=== PATIENT | male | born 1975 | race Caucasian/White ===

== ENCOUNTER 2016-11-15 11:30 | Emergency (ER) | payer SELFPAY ==
[2016-11-15 11:35] VITALS: BP 163/87; PULSE 84; TEMP 98.1; BMI 26.6
[2016-11-15] MEDS ORDERED: diazePAM 5 MG TABLET PO ONE (12:26)
[2016-11-15] MEDS ORDERED: KETOROLAC TROMETHAMINE 60 MG/2 ML VIAL IM ONE (12:26)
--- NOTE | 2016-11-15 12:26 | PDOC ---
History of Present Illness - General Chief Complaint: Pain Stated Complaint: BACK PAIN Time Seen by Provider: 11/15/16 12:03 History Source: Patient Exam Limitations: No Limitations - History of Present Illness Initial Comments: 11/15/16 12:14 My chief complaint: Lower back pain History of present illness: Pt. is a 41-year-old male with no significant medical history here today complaining of left lower back pain started on t hat has gotten progressive worse becoming severe yesterday with difficulty applying any pressure to left leg and walking. Patient reports that the pain radiates from his left lower back down his left leg with tingling of his left large toe since yesterday. 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 Patient does not remember any particular time of day at work when he felt back pain. Patient reports that pain is worse when standing and putting any weight on his left leg and is a 10 out of 10 and feels better lying down. Patient denies any incontinency or saddle anesthesia. Pt. does not have foot drop. Allergies: Medications: Past medical history: Surgical hx: Social history: 11/15/16 12:47 11/15/16 14:08 11/15/16 14:12 11/15/16 14:14 11/15/16 14:17 Occurred: reports: other (for 3-4 days ) Severity: reports: severe Pain Location: reports: back (left lower back pain radiates down posterior left leg to foot ) Method of Injury: Yes: unknown Modifying Factors: improves with: None Loss of Consciousness: no loss of consciousness Associated Symptoms (Fall): muscle spasms, trouble walking, other (left lower back pain with radiation down left posterior leg to left foot with tingling of left large toe ) Past History - Past Medical History Allergies/Adverse Reactions: Allergies Allergy/AdvReac Type Severity Reaction Status Date / Time No Known Allergies Allergy Verified 11/15/16 11:35 Home Medications: Ambulatory Orders Oxycodone HCl/Acetaminophen [Percocet 5-325 mg Tablet] 1 tab PO Q6H PRN #12 tablet MDD 4 11/15/16 Other medical history: NONE - Psycho/Social/Smoking Cessation Hx Suicidal Ideation: No Smoking History: Never smoked Hx Alcohol Use: Yes (SOCIAL) Drug/Substance Use Hx: No Substance Use Type: None Review of Systems - Review of Systems Able to Perform ROS?: Yes Constitutional: No: Symptoms Reported HEENTM: No: Symptoms Reported Respiratory: No: Symptoms reported Cardiac (ROS): No: Symptoms Reported ABD/GI: No: Symptoms Reported : No: Symptoms Reported Musculoskeletal: Yes: Back Pain (left lower back pain with radiation down left posterior leg to foot) Integumentary: No: Symptoms Reported Neurological: Yes: Tingling (left large toe) *Physical Exam - Vital Signs Last Vital Signs Temp Pulse Resp BP Pulse Ox 98.1 F 84 20 163/87 99 11/15/16 11:31 11/15/16 11:31 11/15/16 11:31 11/15/16 11:31 11/15/16 11:31 - Physical Exam General Appearance: Yes: Appropriately Dressed Respiratory/Chest: positive: Lungs Clear, Normal Breath Sounds Cardiovascular: positive: Regular Rhythm, Regular Rate, S1, S2 Extremity: positive: Normal Capillary Refill, Normal Inspection, Tender (left lower back along lumbar paraspinal muscle ). negative: Normal Range of Motion ( at waist ) Integumentary: positive: Normal Color Neurologic: positive: Alert, Normal Response, Respond to painful stimul (b/l legs), Responsive, Other (+ SLR left at 30 degrees, negative rt. SLR). negative : Sensory Deficit (legs b/l ) Deep Tendon Reflexes: Ankle (L): 3+, Ankle (R): 3+, Knee (L): 3+, Knee (R): 3+ Medical Decision Making - Medical Decision Making 11/15/16 12:51 Pt. is a 41-year-old male with no significant medical history here today complaining of left lower back pain started on 11/12/16 t hat has gotten progressive worse becoming severe yesterday with difficulty applying any pressure to left leg and walking. Patient reports that the pain radiates from his left lower back down his left leg with tingling of his left large toe since yesterday. 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 Patient does not remember any particular time of day at work when he felt back pain. Patient reports that pain is worse when standing and putting any weight on his left leg and is a 10 out of 10 and feels better lying down. Patient denies any incontinency or saddle anesthesia. Pt. does not have foot drop. Left lower back pain with radiculopathy with paresthesia left large toe PLAN: toradol 60 IM now valium 5 mg po now 11/15/16 14:12 11/15/16 14:12 pt. has not improved percocet 5mg/325mg po now than every 6 hrs prn severe pain # [address] of lumbar sacral spine reveals a moderate size central and left paramedial L4-L5 disc herniation. There is also appears to be a disc extruded component within the left L5 lateral recess. A very small X extruded central else to L3 disc herniation is seen with this material posterior to the L2 inferior endplate. 11/15/16 14:17 11/15/16 15:57 feeling better will discharge to home pt. to follow up with orthopedic clinic at [facility] [phone] due to not having insurance or here with Dr. Cheng 11/15/16 19:37 *DC/Admit/Observation/Transfer Diagnosis at time of Disposition: Lumbar disc herniation with radiculopathy - Discharge Dispostion Disposition: HOME Condition at time of disposition: Stable - Prescriptions Prescriptions: Oxycodone HCl/Acetaminophen [Percocet 5-325 mg Tablet] 1 tab PO Q6H PRN #12 tablet MDD 4 PRN Reason: Severe Pain - Patient Instructions Additional Instructions: Follow Up with orthopedic clinic at [facility] at [phone] ask for the orthopedic clinic on 11/17/2016 or call here for clinic with Dr. Cheng orthopedist [phone] for further evaluation Avoid any strenuous activities including shoveling or lifting or any sports Return to emergency room if symptoms worsen especially if any numbness of groin area or leg or any weakness of leg or left foot Patient voiced understanding of discharge instructions and all questions were answered Siga con la clnica ortopdica en [facility] al [phone] pida la clnica ortopdica el 17/11/2016 O llame aqu para la clnica con el Dr. Cheng ortopabbyista [phone] para gretta evaluacin posterior Evite cualquier actividad extenuante incluyendo palear o levantar objetos o cualquier deporte Regreso a la susanne de emergencias si los sntomas empeoran especialmente si hay entumecimiento de la aguilar de la johnnie o pierna o cualquier debilidad de la pierna o pie cheryl Comprensin del paciente sobre las instrucciones de keanu y todas las preguntas fueron contestadas - Post Discharge Activity Work/School Note: Back to Work
[2016-11-15] MEDS ORDERED: KETOROLAC TROMETHAMINE 60 MG/2 ML VIAL ONE (12:37)
[2016-11-15] MEDS ORDERED: diazePAM 5 MG TABLET ONE (12:37)
[2016-11-15] MEDS ORDERED: OXYCODONE/APAP 5/325MG COMBO TABLET ONE (13:44)
[2016-11-15] MEDS ORDERED: OXYCODONE/APAP 5/325MG COMBO TABLET PO ONE (14:03)
== END 2016-11-15 16:16 | disposition home or self-care (01) ==
LOC: JERFT 11:30
PROC: 3E0233Z Introduction of Anti-inflammatory into Muscle, Percutaneous Approach (ICD-10-PCS; principal; 2016-11-15)
DX: M51.16 Intervertebral disc disorders with radiculopathy, lumbar region (principal)
CPT/HCPCS: 72131-TC; 99281-25

== ENCOUNTER 2019-06-10 04:55 | Day surgery (SDC) | payer OTHER ==
[2019-06-06 17:04] VITALS: BMI 27.9
--- NOTE | 2019-06-10 09:16 | HP ---
History & Physical Update - History History: No Change - Physical Physical: No Change - Assessment Assessment: No Change - Plan Plan: No Change (H & P done on 05/12/19)
[2019-06-10] MEDS ORDERED: MIDAZOLAM HCL 2 MG/2 ML SINGLE DOSE VIAL ONE ×2 (09:19)
[2019-06-10] MEDS ORDERED: PROPOFOL 20 ML ONE (09:26)
[2019-06-10] MEDS ORDERED: ROCURONIUM BROMIDE 50 MG/5 ML SYRINGE ONE ×2 (09:26→10:28)
[2019-06-10] MEDS ORDERED: ceFAZolin SODIUM 1 GM VIAL IVPB ONE (09:35)
[2019-06-10] MEDS ORDERED: BUPIVACAINE HCL/PF 0.5% (5 MG/ML) 30 ML VIAL IJ ONE ×2 (09:55)
[2019-06-10] MEDS ORDERED: NEOSTIGMINE METHYLSULFATE 0.5 MG/ML - 10 ML MDV ONE (10:59)
[2019-06-10] MEDS ORDERED: oxyCODONE HCL 5 MG TABLET PO PRN (11:18)
[2019-06-10] MEDS ORDERED: PROMETHAZINE HCL 25 MG/1 ML VIAL IVPUSH PRN (11:18)
[2019-06-10] MEDS ORDERED: ONDANSETRON 4 MG/2 ML VIAL IVPUSH PRN (11:18)
--- NOTE | 2019-06-10 11:22 | OP ---
Operative Note - Note: Operative Date: 06/10/19 Pre-Operative Diagnosis: RIH, r/o bilateral inguinal hernias Operation: robotic RIH repair with mesh Findings: Small RIH, lipoma of the cord, small femoral hernia, negative LIH Implants: PROGRIP 15 X 10 cm mesh Surgeon: Zurdo Houser Patient Biller: Ed Palomino Anesthesia: General Estimated Blood Loss (mls): 1 Operative Report Dictated: Yes
[2019-06-10] MEDS ORDERED: LACTATED RINGERS SOLUTION 1,000 ML IV SCH (11:30)
[2019-06-10 13:37] VITALS: TEMP 97.8
[2019-06-10] MEDS ORDERED: oxyCODONE HCL 5 MG TABLET ONE (13:39)
[2019-06-10] MEDS ORDERED: oxyCODONE HCL 5 MG TABLET PO ONE (13:42)
--- NOTE | 2019-06-10 14:38 | SURG ---
Surgery X Ray Equipment Tester Note X Ray Equipment Tester: Ed Palomino PA-C Date of Service: 06/10/19 Diagnosis: Right inguinal hernia, r/o bilateral inguinal hernias Procedure: robotic assisted Right inguinal hernia repair with mesh I was present for the entirety of the operative procedure. For further detail, please refer to operative report. Visit type - Case Type Case Type: Scheduled - Emergency Emergency Visit: No - New patient This patient is new to me today: Yes Date on this admission: 06/10/19 - Critical Care Critical Care patient: No
[2019-06-10 15:36] VITALS: BP 121/76; PULSE 81
--- NOTE | 2019-06-10 15:40 | OP ---
DATE OF OPERATION: 06/10/2019 PROCEDURE: Robotic-assisted laparoscopic right inguinal hernia repair with mesh. PREOPERATIVE DIAGNOSIS: Right inguinal hernia, rule out bilateral inguinal hernia. POSTOPERATIVE DIAGNOSIS: Right inguinal hernia and lipoma in the cord and small femoral hernia. SURGEON: Zurdo Houser MD TEAM PRIMARY CARE PHYSICIAN: ANTONY Richard ANESTHESIA: General endotracheal. FINDINGS AND PROCEDURE: This is a 44-year-old male who presents with bilateral inguinal pain and history of low back pain. Patient had a preoperative CT scan which showed bilateral fat-containing inguinal hernia. On physical exam, patient had a small right inguinal bulge over the left inguinal area. Was noted to be unremarkable with just a questionable . Patient was advised right inguinal hernia repair and possible bilateral hernia repair. Informed consent was obtained after discussing the risks, benefits, and alternatives of the procedure. Patient was brought to the operating room and placed in supine position. General endotracheal anesthesia was administered. The abdomen was prepped and draped in the usual sterile fashion. Using the Veress needle technique, the peritoneal cavity was entered via a supraumbilical 8-mm incision slightly to the right of midline. Pneumoperitoneum was established. This was followed by insertion of an 8-mm port. The 3D 0-degree laparoscope was inserted, and the peritoneal cavity was carefully inspected and was noted to be free of inadvertent injury. Patient was then placed in Trendelenburg position. 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 The right inguinal area was noted to have a very small indentation of the internal ring and mild attenuation of the transversalis fascia. Two 8-mm ports were inserted each side of the midline 8 cm away from each other under direct vision. The patient was placed in Trendelenburg position, and the target organ was set. The robotic arms were docked to other ports. A fenestrated bipolar forceps was inserted at the left-sided port, and the EndoWrist Alice connected to monopolar cautery were inserted at the right-sided port. The undersigned then scrubbed out to commence the console part of the procedure. The congenital lesions of the sigmoid colon were taken down sharply using the EndoWrist Alice. No clearly visible inguinal hernia was noted, so it was decided upon to repair the right inguinal hernia. A peritoneal pocket was created about the level of the anterior superior iliac spine using the EndoWrist Alice connected to monopolar cautery by incising the parietal peritoneum. Further dissection using combined blunt and sharp dissection with a bipolar and EndoWrist Alice was done using the inferior epigastric vessels as a landmark. Dissection was carried laterally towards the anterior superior iliac spine and medially towards the symphysis pubis. Inferiorly, this was carried down to the underside of the symphysis pubis medially and toward the psoas muscle. A lipoma of the cord was identified, and this was bluntly reduced from the internal ring and dissected away from the spermatic cord. A small femoral hernia was also identified, and the inguinal floor close to the symphysis pubis was also noted to be mildly attenuated. After dissection was deemed satisfactory, a 15 x 10-cm ProGrip mesh was deployed covering the femoral canal, the inguinal floor, and the internal ring as far laterally to the anterior superior iliac spine and medially to the underside of the symphysis pubis. After deployment of the mesh was deemed satisfactory, the peritoneal pocket was closed with a continuous absorbable V-Loc 2-0 suture. When this was completed, the peritoneal cavity was again carefully inspected and was noted to be free of inadvertent injury and active bleeding. The robotic arms were undocked. The pneumoperitoneum was evacuated, and the ports were removed. The wounds were closed with subcuticular Biosyn 4-0 sutures reinforced with Dermabond. Patient was successfully extubated and transferred to the post anesthesia care unit in satisfactory condition. Estimated blood loss was about 1 mL. Wound class clean. Patient received a gram of Ancef prior to the start of the procedure. Keshia [id number]
== END 2019-06-10 15:30 | disposition home or self-care (01) ==
LOC: JASU-SURG 04:55
PROVIDERS: ATTEND Surgery
PROC: 8E0W4CZ Robotic Assisted Procedure of Trunk Region, Percutaneous Endoscopic Approach (ICD-10-PCS; 2019-06-10)
PROC: 0YU54JZ Supplement Right Inguinal Region with Synthetic Substitute, Percutaneous Endoscopic Approach (ICD-10-PCS; principal; 2019-06-10 09:30)
DX: K40.90 Unilateral inguinal hernia, without obstruction or gangrene, not specified as recurrent (principal)
CPT/HCPCS: 49650; S2900; 94760

== ENCOUNTER 2019-06-13 09:56 | Emergency (ER) | payer OTHER ==
[2019-06-13 10:07] VITALS: BP 127/78; PULSE 89; TEMP 98; BMI 27.1
--- NOTE | 2019-06-13 12:22 | PDOC ---
History of Present Illness - General Chief Complaint: Pain, Acute Stated Complaint: FOOT PAIN/SWOLLEN Time Seen by Provider: 06/13/19 11:33 - History of Present Illness Initial Comments: 06/13/19 12:20 44-year-old male without comorbidities 1 week status post laparoscopic hernia repair presents for evaluation of left foot pain x1 day without systemic symptoms. Patient has a history of gout and this is similar to his prior symptoms and outbreaks of gout in the past. In the same area. No systemic symptoms. Left foot pain sudden in onset without any precipitating traumatic event. Past History - Past Medical History Allergies/Adverse Reactions: Allergies Allergy/AdvReac Type Severity Reaction Status Date / Time No Known Allergies Allergy Verified 06/13/19 10:07 Home Medications: Ambulatory Orders Methylprednisolone [Medrol Dose Lazaro] 4 mg PO ASDIR #21 tablet 06/13/19 Anemia: No Asthma: No Cancer: No Cardiac Disorders: No CVA: No COPD: No CHF: No Dementia: No Diabetes: No GI Disorders: No Disorders: No HTN: No Hypercholesterolemia: No Liver Disease: No Seizures: No Thyroid Disease: No Other medical history: GOUT - Surgical History Abdominal Surgery: (HERNIA REPAIR LAST WEEK) - Psycho Social/Smoking Cessation Hx Smoking History: Never smoked Hx Alcohol Use: Yes Drug/Substance Use Hx: No Substance Use Type: None Hx Substance Use Treatment: No Review of Systems - Review of Systems Constitutional: No: Fever *Physical Exam - Vital Signs Last Vital Signs Temp Pulse Resp BP Pulse Ox 98.0 F 89 18 127/78 100 06/13/19 10:05 06/13/19 10:05 06/13/19 10:05 06/13/19 10:05 06/13/19 10:05 - Physical Exam 06/13/19 12:20 There is minimal erythema on the lateral aspect of the left foot without induration, there is mild skin sensitivity. Mild swelling. No gross sensorimotor deficits neurovascular intact. Decreased range of motion of the ankle and toes. Medical Decision Making - Medical Decision Making 06/13/19 12:21 The erythemic area was outlined. I do not believe this is a cellulitis. 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 He was instructed any erythema outside the outlined area to come back to the emergency room Medrol Dosepak to start today. Close follow-up with primary care physician. Patient is on tramadol for pain Discharge - Discharge Information Problems reviewed: Yes Clinical Impression/Diagnosis: Gout attack Condition: Stable Disposition: HOME - Admission No - Additional Discharge Information Prescriptions: Methylprednisolone [Medrol Dose Lazaro] 4 mg PO ASDIR #21 tablet - Follow up/Referral Referrals: Keegan Cross MD [Primary Care Provider] - - Patient Discharge Instructions Additional Instructions: Please start the Medrol Dosepak today and take it as directed. Any redness outside the outlined area you must return to the emergency room immediately. Otherwise follow-up with your primary care physician in 2 to 3 days for further evaluation and treatment options. Continue your tramadol as directed. - Post Discharge Activity
== END 2019-06-13 12:34 | disposition home or self-care (01) ==
LOC: JERFT 09:56
DX: M10.9 Gout, unspecified (principal)
CPT/HCPCS: 99282-25

== ENCOUNTER 2019-06-16 07:46 | Emergency (ER) | payer OTHER ==
[2019-06-16 07:59] VITALS: BMI 29.2
[2019-06-16] MEDS ORDERED: COLCHICINE 0.6 MG CAP PO ONE ×2 (08:06→09:14)
[2019-06-16] MEDS ORDERED: COLCHICINE 0.6 MG CAP ONE ×2 (08:22→09:42)
--- NOTE | 2019-06-16 10:30 | PDOC ---
History of Present Illness - General History Source: Patient Exam Limitations: No Limitations - History of Present Illness Initial Comments: 06/16/19 08:25 44-year-old male presents to ED with complaints of left foot pain for the past few days which he states has decreased in the past day but now complaining of left knee pain and swelling. Patient states status post abdominal hernia repair over a week ago and was seen here 2 days ago for the left foot pain. Patient states was given a Medrol pack and told to come back if symptoms continue. Patient states has history of gout and denies any injury to the area , calf pain, sensory changes to the affected area, increased warmth to area, fever or chills. 06/16/19 10:35 Is this a multiple visit Asthma Patient?: No Timing/Duration: changing over time Severity: mild Associated Symptoms: reports: other <Kelsy Erwin - Last Filed: 06/16/19 10:37> <Mervat Samaniego - Last Filed: 06/26/19 09:58> - General Chief Complaint: Pain, Acute Stated Complaint: GOUT Time Seen by Provider: 06/16/19 08:06 Past History - Travel Traveled outside of the country in the last 30 days: No Close contact w/someone who was outside of country & ill: No - Past Medical History Anemia: No Asthma: No Cancer: No Cardiac Disorders: No CVA: No COPD: No CHF: No Dementia: No Diabetes: No GI Disorders: No Disorders: No HTN: No Hypercholesterolemia: No Liver Disease: No Seizures: No Thyroid Disease: No Other medical history: GOUT - Surgical History Abdominal Surgery: (HERNIA REPAIR LAST WEEK) - Immunization History Immunization Up to Date: No - Psycho Social/Smoking Cessation Hx Smoking History: Never smoked Have you smoked in the past 12 months: No Information on smoking cessation initiated: No Hx Alcohol Use: No Drug/Substance Use Hx: No Substance Use Type: None Hx Substance Use Treatment: No Patient Lives Alone: No Lives with/in: spouse/SO <Kelsy Erwin - Last Filed: 06/16/19 10:37> <Mervat Samaniego - Last Filed: 06/26/19 09:58> - Past Medical History Allergies/Adverse Reactions: Allergies Allergy/AdvReac Type Severity Reaction Status Date / Time No Known Allergies Allergy Verified 01/18/20 11:01 Home Medications: Ambulatory Orders Methylprednisolone [Medrol Dose Lazaro] 4 mg PO ASDIR #21 tablet 06/13/19 Oxycodone HCl/Acetaminophen [Percocet 5-325 mg Tablet] 1 - 2 tab PO Q6H PRN #12 tab MDD 4 06/16/19 Cephalexin [Keflex] 500 mg PO TID #20 capsule 06/17/19 Sulfamethoxazole/Trimethoprim [Bactrim Ds -] 1 tab PO BID #13 tablet 06/17/19 Review of Systems - Review of Systems Able to Perform ROS?: Yes Constitutional: No: Symptoms Reported HEENTM: No: Symptoms Reported Respiratory: No: Symptoms reported Cardiac (ROS): No: Symptoms Reported ABD/GI: No: Symptoms Reported Musculoskeletal: Yes: Joint Pain Integumentary: Yes: Other Neurological: No: Symptoms reported Endocrine: No: Symptoms Reported <Kelsy Erwin - Last Filed: 06/16/19 10:37> *Physical Exam - Vital Signs Last Vital Signs Temp Pulse Resp BP Pulse Ox 98.0 F 89 18 148/84 99 06/16/19 07:54 06/16/19 07:54 06/16/19 07:54 06/16/19 07:54 06/16/19 07:54 - Physical Exam General Appearance: Yes: Nourished, Appropriately Dressed. No: Apparent Distress HEENT: negative: Pale Conjunctivae Neck: positive: Supple Respiratory/Chest: positive: Lungs Clear, Normal Breath Sounds. negative: Respiratory Distress, Accessory Muscle Use Cardiovascular: positive: Regular Rhythm, Regular Rate. negative: Murmur Gastrointestinal/Abdominal: positive: Soft. negative: Tenderness (Incision x3 to abdomen dry and covered with Steri-Strip) Extremity: positive: Tender ( Unable to flex completely at the left patellar joint secondary to joint effusion of the knee. 1+ edema noted to left foot without increased warmth or increased tenderness. No increased warmth redness or palpable mass to the left patellar region). negative: Normal Range of Motion Integumentary: positive: Normal Color, Warm, Moist Neurologic: positive: Normal Mood/Affect, Motor Strength 5/5 (Ambulatory with crutches) <Kelsy Erwin - Last Filed: 06/16/19 10:37> - Vital Signs Last Vital Signs Temp Pulse Resp BP Pulse Ox 98.3 F 86 20 138/86 97 06/16/19 10:43 06/16/19 10:43 06/16/19 10:43 06/16/19 10:43 06/16/19 10:43 <Mervat Saamniego - Last Filed: 06/26/19 09:58> ED Treatment Course - RADIOLOGY Radiology Studies Ordered: Category Date Time Status DUPLEX VASCUL US-1 LEG [US] Stat Ultrasound 06/16/19 08:30 Completed - Medications Given in the ED: ED Medications Discontinued Medications Generic Name Dose Route Start Last Admin Trade Name Freq PRN Reason Stop Dose Admin Colchicine 1.2 mg 06/16/19 08:06 06/16/19 08:23 Colcrys PO 06/16/19 08:07 1.2 mg ONCE ONE Administration Colchicine 0.6 mg 06/16/19 09:14 06/16/19 09:45 Colcrys PO 06/16/19 09:15 0.6 mg ONCE ONE Administration Oxycodone/Acetaminophen 1 combo 06/16/19 09:14 06/16/19 09:45 Percocet 5/325 - PO 06/16/19 09:15 1 combo ONCE ONE Administration <Kelsy Erwin - Last Filed: 06/16/19 10:37> - Medications Given in the ED: ED Medications Discontinued Medications Generic Name Dose Route Start Last Admin Trade Name Freq PRN Reason Stop Dose Admin Colchicine 1.2 mg 06/16/19 08:06 06/16/19 08:23 Colcrys PO 06/16/19 08:07 1.2 mg ONCE ONE Administration Colchicine 0.6 mg 06/16/19 09:14 06/16/19 09:45 Colcrys PO 06/16/19 09:15 0.6 mg ONCE ONE Administration Oxycodone/Acetaminophen 1 combo 06/16/19 09:14 06/16/19 09:45 Percocet 5/325 - PO 06/16/19 09:15 1 combo ONCE ONE Administration <Mervat Samaniego - Last Filed: 06/26/19 09:58> Medical Decision Making - Medical Decision Making 06/16/19 10:33 Chief complaint: Left knee pain over the past few days associated with resolving left foot pain. Patient history of gout and received Medrol pack 2 days ago here in fast track. Patient is not on colchicine and has not taken anything for pain except for Ultram 2 days ago Exam: Patient with noted left patella joint effusion and 1+ edema to the left foot along with noted discoloration within the marked line Plan: Colchicine 2 dose step along with duplex secondary to recent surgery and leg edema noted 06/16/19 10:37 Duplex negative for DVT. Patient states feeling much better. Patient given strict instructions if no improvement over the next day to return to the ED. Patient also ordered for Herb wrap to be applied to left knee during the day but remove at night and to elevate extremity applying ice as much as he can tolerate <Kelsy Erwin - Last Filed: 06/16/19 10:37> - Medical Decision Making I reviewed the case with the mid-level practitioner and agree with the mid- level practitioner's assessment, diagnosis and disposition. <Mervat Samaniego - Last Filed: 06/26/19 09:58> Discharge - Discharge Information Problems reviewed: Yes <Kelsy Erwin - Last Filed: 06/16/19 10:37> <Mervat Samaniego - Last Filed: 06/26/19 09:58> - Discharge Information Clinical Impression/Diagnosis: Gout attack Condition: Good Disposition: HOME - Additional Discharge Information Prescriptions: Oxycodone HCl/Acetaminophen [Percocet 5-325 mg Tablet] 1 - 2 tab PO Q6H PRN #12 tab MDD 4 PRN Reason: Pain - Follow up/Referral Referrals: Keegan Cross MD [Primary Care Provider] - - Patient Discharge Instructions Patient Printed Discharge Instructions: DI for Gout Additional Instructions: I recommend applying ice to the affected areas much as you can tolerate for the next 48 hours. Elevate your extremity higher than your heart. Use Herb wrap during the day but remove at night. Take Percocet for discomfort. If symptoms do not improve over the next 24 hours please return to the ED - Post Discharge Activity
[2019-06-16 10:44] VITALS: BP 138/86; PULSE 86; TEMP 98.3
== END 2019-06-16 11:15 | disposition home or self-care (01) ==
LOC: JER 07:46
DX: M10.9 Gout, unspecified (principal); Z98.890 Other specified postprocedural states
CPT/HCPCS: 93971-TC; 99281-25

== ENCOUNTER 2019-06-17 14:11 | Emergency (ER) | payer OTHER ==
--- NOTE | 2019-06-17 14:15 | PDOC ---
Rapid Medical Evaluation Time Seen by Provider: 06/17/19 14:14 Medical Evaluation: Allergies Allergy/AdvReac Type Severity Reaction Status Date / Time No Known Allergies Allergy Verified 06/17/19 14:13 06/17/19 14:15 I have performed a brief in-person evaluation of this patient. The patient presents with a chief complaint of: Worsenign L foot pain/swelling/ erythema. Seen in ED yesterday for mostly L knee sweling and told possible gout flare as pt has h/o same. Given colchicine while here and dc w/ percocet. Duplex neg. States since dc, L foot sxs have worsened. No f/c. Denies CP, palp or sob Pertinent physical exam findings:Tachy to 121 but afebrile w/ L foot edematous w / localized erythema to lateral foot I have ordered the following:labs The patient will proceed to the ED for further evaluation 06/17/19 14:23 Discharge Disposition - Diagnosis Foot pain, left - Referrals - Patient Instructions - Post Discharge Activity
[2019-06-17 14:17] VITALS: TEMP 98.1; BMI 27.1
[2019-06-17 15:45] LABS: BASO % 0.3 % (0-2.0); EOS % 1.5 % (0-4.5); HEMATOCRIT 40.8 % (35.4-49); HEMOGLOBIN 13.6 GM/dL (11.7-16.9); LYMPH % 18.1 % (8-40); MCH 30.4 pg (25.7-33.7); MCHC 33.4 g/dl (32.0-35.9); MEAN CELL VOLUME 90.9 fl (80-96); MEAN PLT VOLUME 7.4 fl (7.5-11.1); MONO % 8.5 % (3.8-10.2); NEUT % 71.6 % (42.8-82.8); PLATELET COUNT 298 K/MM3 (134-434); RBC 4.49 M/mm3 (4.00-5.60); RDW 12.4 % (11.9-15.9); WHITE BLOOD COUNT 7.4 K/mm3 (4.0-10.0)
[2019-06-17 16:19] LABS: ALBUMIN 3.9 g/dl (3.4-5.0); BILIRUBIN,TOTAL 0.7 mg/dL (0.2-1); CALCIUM 9.8 mg/dL (8.5-10.1); CREATININE 0.8 mg/dL (0.55-1.3); POTASSIUM 4.6 mmol/L (3.5-5.1); TOT PROT 7.9 g/dl (6.4-8.2); URIC ACID 5.5 mg/dL (2.6-7.2)
[2019-06-17] MEDS ORDERED: SULFAMETHOXAZOLE/TRIMETHOPRIM 800MG/160MG D.S. TABLET PO ONE (17:07)
[2019-06-17] MEDS ORDERED: CEPHALEXIN MONOHYDRATE 500 MG CAPSULE (UD) PO ONE (17:07)
[2019-06-17] MEDS ORDERED: CEPHALEXIN MONOHYDRATE 500 MG CAPSULE (UD) ONE (17:23)
[2019-06-17] MEDS ORDERED: SULFAMETHOXAZOLE/TRIMETHOPRIM 800MG/160MG D.S. TABLET ONE (17:23)
[2019-06-17 17:30] VITALS: BP 132/95; PULSE 100
--- NOTE | 2019-06-17 17:35 | PDOC ---
History of Present Illness - General History Source: Patient Exam Limitations: No Limitations <Lizette Brian - Last Filed: 06/17/19 17:13> <Mervat Samaniego - Last Filed: 06/17/19 18:50> - General Chief Complaint: Pain, Acute Stated Complaint: FOLLOW UP Time Seen by Provider: 06/17/19 14:14 Past History - Past Medical History Anemia: No Asthma: No Cancer: No Cardiac Disorders: No CVA: No COPD: No CHF: No Dementia: No Diabetes: No GI Disorders: No Disorders: No HTN: No Hypercholesterolemia: No Liver Disease: No Seizures: No Thyroid Disease: No Other medical history: GOUT - Surgical History Abdominal Surgery: (HERNIA REPAIR LAST WEEK) - Immunization History Immunization Up to Date: No - Psycho Social/Smoking Cessation Hx Smoking History: Never smoked Have you smoked in the past 12 months: No Hx Alcohol Use: No Drug/Substance Use Hx: No Substance Use Type: None Hx Substance Use Treatment: No <Lizette Brian - Last Filed: 06/17/19 17:13> <Mervat Samaniego - Last Filed: 06/17/19 18:50> - Past Medical History Allergies/Adverse Reactions: Allergies Allergy/AdvReac Type Severity Reaction Status Date / Time No Known Allergies Allergy Verified 06/17/19 14:13 Home Medications: Ambulatory Orders Methylprednisolone [Medrol Dose Lazaro] 4 mg PO ASDIR #21 tablet 06/13/19 Oxycodone HCl/Acetaminophen [Percocet 5-325 mg Tablet] 1 - 2 tab PO Q6H PRN #12 tab MDD 4 06/16/19 Cephalexin [Keflex] 500 mg PO TID #20 capsule 06/17/19 Sulfamethoxazole/Trimethoprim [Bactrim Ds -] 1 tab PO BID #13 tablet 06/17/19 *Physical Exam - Vital Signs Last Vital Signs Temp Pulse Resp BP Pulse Ox 98.1 F 121 H 18 136/95 100 06/17/19 14:14 06/17/19 14:14 06/17/19 14:14 06/17/19 14:14 06/17/19 14:14 - Physical Exam General Appearance: No: Apparent Distress Respiratory/Chest: positive: Lungs Clear, Normal Breath Sounds. negative: Respiratory Distress Cardiovascular: positive: Regular Rhythm, Regular Rate, S1, S2. negative: Murmur Extremity: positive: Other (+LLE swelling, no pitting edema, +erythema and warmth along lateral aspect of L foot, no streaking noted, +mild swelling of L knee as well, no effusion, LLE neurovascularly intact). negative: Coldness, Cyanosis Integumentary: negative: Jaundice, Mottled, Rash, Ecchymosis, Bruising Neurologic: positive: Alert <Lizette Brian - Last Filed: 06/17/19 17:13> - Vital Signs Last Vital Signs Temp Pulse Resp BP Pulse Ox 98.1 F 100 H 18 132/95 100 06/17/19 14:14 06/17/19 17:30 06/17/19 17:30 06/17/19 17:30 06/17/19 14:14 <Mervat Samaniego - Last Filed: 06/17/19 18:50> ED Treatment Course - LABORATORY CBC & Chemistry Diagram: 06/17/19 15:15 06/17/19 15:15 - ADDITIONAL ORDERS Additional order review: Laboratory Results 06/17/19 15:15 Sodium 138 Potassium 4.6 Chloride 99 Carbon Dioxide 32 Anion Gap 7 L BUN 12.0 Creatinine 0.8 Est GFR (CKD-EPI)AfAm 125.04 Est GFR (CKD-EPI)NonAf 107.88 Random Glucose 148 H Uric Acid 5.5 Calcium 9.8 Total Bilirubin 0.7 AST 39 H ALT 79 H Alkaline Phosphatase 109 Total Protein 7.9 Albumin 3.9 06/17/19 15:15 RBC 4.49 MCV 90.9 MCHC 33.4 RDW 12.4 MPV 7.4 L Neutrophils % 71.6 D Lymphocytes % 18.1 D Monocytes % 8.5 Eosinophils % 1.5 Basophils % 0.3 <Lizette Brian - Last Filed: 06/17/19 17:13> - LABORATORY CBC & Chemistry Diagram: 06/17/19 15:15 06/17/19 15:15 - ADDITIONAL ORDERS Additional order review: Laboratory Results 06/17/19 15:15 Sodium 138 Potassium 4.6 Chloride 99 Carbon Dioxide 32 Anion Gap 7 L BUN 12.0 Creatinine 0.8 Est GFR (CKD-EPI)AfAm 125.04 Est GFR (CKD-EPI)NonAf 107.88 Random Glucose 148 H Uric Acid 5.5 Calcium 9.8 Total Bilirubin 0.7 AST 39 H ALT 79 H Alkaline Phosphatase 109 Total Protein 7.9 Albumin 3.9 06/17/19 15:15 RBC 4.49 MCV 90.9 MCHC 33.4 RDW 12.4 MPV 7.4 L Neutrophils % 71.6 D Lymphocytes % 18.1 D Monocytes % 8.5 Eosinophils % 1.5 Basophils % 0.3 - Medications Given in the ED: ED Medications Discontinued Medications Generic Name Dose Route Start Last Admin Trade Name John Paul PRN Reason Stop Dose Admin Cephalexin HCl 500 mg 06/17/19 17:07 06/17/19 17:27 Keflex - PO 06/17/19 17:08 500 mg ONCE ONE Administration Oxycodone/Acetaminophen 1 combo 06/17/19 17:07 06/17/19 17:28 Percocet 5/325 - PO 06/17/19 17:08 1 combo ONCE ONE Administration Trimethoprim/Sulfamethoxazole 1 each 06/17/19 17:07 06/17/19 17:27 Bactrim Ds - PO 06/17/19 17:08 1 each ONCE ONE Administration <Mervat Samaniego - Last Filed: 06/17/19 18:50> Medical Decision Making - Medical Decision Making 44 y/o M hx of gout presents with L foot/L knee swelling x6 days. States, initially this started as L foot swelling 5 days ago and then with L knee swelling 2 days ago. Patient was seen in ED twice for same complaint. He was first seen 06/13 and dx with gout, discharged on Medrol dosepak, but noticing improvement and then returned yesterday, had LLE US done which was negative. He was given Colchine and then discharged on Percocet. States the percocet helped with pain, but still with the swelling. Denies fever, trauma, sob, cp, numbness/ tingling. No concern for DVT given negative US yesterday Unlikely PAD given 2+ pedal pulses of LLE Consider cellulitis given erythema and warmth to L foot Will treat with keflex and bactrim Area of redness was demarcated D/W Dr. Samaniego - recommends patient comes back tomorrow for repeat evaluation 06/17/19 17:14 <Lizette Brian - Last Filed: 06/17/19 17:13> - Medical Decision Making I independently examined and evaluated this patient in conjunction with ANTONY Brian. I reviewed the case and agree with the mid-level practitioner's assessment, diagnosis and disposition. Exam is c/w cellulitis. Will treat with abx, recommended reevaluation tomorrow. <Mervat Samaniego - Last Filed: 06/17/19 18:50> Discharge - Discharge Information Problems reviewed: Yes - Admission No - Additional Discharge Information Prescription Drug Monitoring Program (I-STOP) results: I-STOP not reviewed <Lizette Brian - Last Filed: 06/17/19 17:13> <Mervat Samaniego - Last Filed: 06/17/19 18:50> - Discharge Information Clinical Impression/Diagnosis: Cellulitis Qualifiers: Site of cellulitis: extremity Site of cellulitis of extremity: lower extremity Laterality: left Qualified Code(s): L03.116 - Cellulitis of left lower limb Condition: Stable Disposition: HOME - Additional Discharge Information Prescriptions: Cephalexin [Keflex] 500 mg PO TID #20 capsule Sulfamethoxazole/Trimethoprim [Bactrim Ds -] 1 tab PO BID #13 tablet - Follow up/Referral Referrals: Keegan Cross MD [Primary Care Provider] - 2 Days - Patient Discharge Instructions Patient Printed Discharge Instructions: DI for Cellulitis -- Adult Additional Instructions: Thank you for choosing [facility]. It was a pleasure taking care of you. Take Motrin 600 mg every 6 hours as needed for mild to moderate pain You may continue Percocet as needed for severe pain Take antibiotics as prescribed Please return to ED tomorrow for repeat evaluation of leg Return to the Emergency Department if your symptoms worsen or persist, you have fever, redness extends beyond the demarcated line, have streaking or other concerning symptoms. - Post Discharge Activity
== END 2019-06-17 18:00 | disposition home or self-care (01) ==
LOC: JER 14:11
DX: L03.116 Cellulitis of left lower limb (principal)
CPT/HCPCS: 36415; 80053; 84550; 85025; 99282-25

== ENCOUNTER 2019-06-18 10:55 | Emergency (ER) | payer OTHER ==
[2019-06-18 11:01] VITALS: BP 151/92; PULSE 92; TEMP 97.7; BMI 26.6
--- NOTE | 2019-06-18 11:36 | PDOC ---
Suture Removal/Wound Check HPI - History of Present Illness Chief Complaint: Revisit,Wound Recheck Stated Complaint: FOLLOW UP Time Seen by Provider: 06/18/19 11:16 History Source: Yes: Patient Exam Limitations: Yes: No Limitations Treated at: [facility] Date of Last ED visit: 06/17/19 - Previous ED Treatment Type of procedure performed on last visit: Yes: Other (Cellulitis) Past History - Past Medical History Allergies/Adverse Reactions: Allergies Allergy/AdvReac Type Severity Reaction Status Date / Time No Known Allergies Allergy Verified 06/18/19 11:01 Home Medications: Ambulatory Orders Methylprednisolone [Medrol Dose Lazaro] 4 mg PO ASDIR #21 tablet 06/13/19 Oxycodone HCl/Acetaminophen [Percocet 5-325 mg Tablet] 1 - 2 tab PO Q6H PRN #12 tab MDD 4 06/16/19 Cephalexin [Keflex] 500 mg PO TID #20 capsule 06/17/19 Sulfamethoxazole/Trimethoprim [Bactrim Ds -] 1 tab PO BID #13 tablet 06/17/19 Anemia: No Asthma: No Cancer: No Cardiac Disorders: No CVA: No COPD: No CHF: No Dementia: No Diabetes: No GI Disorders: No Disorders: No HTN: No Hypercholesterolemia: No Liver Disease: No Seizures: No Thyroid Disease: No - Surgical History Abdominal Surgery: (HERNIA REPAIR LAST WEEK) - Immunization History Immunization Up to Date: No - Psycho Social/Smoking Cessation Hx Smoking History: Unknown if ever smoked Have you smoked in the past 12 months: No Information on smoking cessation initiated: No Hx Alcohol Use: No Drug/Substance Use Hx: No Substance Use Type: None Hx Substance Use Treatment: No Suture Removal/Wound Check PE - Physical Exam Laceration/Wound Check Symptoms: reports: Redness, Improved Current Severity Level: Mild Pain Localization: None Location of Laceration/Wound: left: Foot Pain Radiation: None *Review of Systems - Review of Systems Able to Perform ROS?: Yes Constitutional: No: Symptoms Reported HEENTM: No: Symptoms Reported Respiratory: No: Symptoms reported Cardiac (ROS): No: Symptoms Reported ABD/GI: No: Symptoms Reported : No: Symptoms Reported Musculoskeletal: No: Symptoms Reported Integumentary: Yes: See HPI Neurological: No: Symptoms reported Endocrine: No: Symptoms Reported Hematologic/Lymphatic: No: Symptoms Reported *Physical Exam - Vital Signs Last Vital Signs Temp Pulse Resp BP Pulse Ox 97.7 F 92 H 16 151/92 100 06/18/19 10:59 06/18/19 10:59 06/18/19 10:59 06/18/19 10:59 06/18/19 10:59 - Physical Exam Musculoskeletal: positive: Other (Swelling present to left knee. Flexion greater than 90 degrees noted. Full extension. No erythema or warmth present.) Extremity: positive: Normal Capillary Refill, Swelling (Swelling present to left knee. Flexion greater than 90 degrees noted. Full extension. No erythema or warmth present.), Erythema (Present over the left lateral foot. Line of demarcation placed yesterday noted. Erythema has improved since antibiotics had started.). negative: Calf Tenderness Medical Decision Making - Medical Decision Making 06/18/19 11:43 A/P: 44-year-old male with multiple ER visits for left knee and left foot swelling for wound check Area of cellulitis is improved since initiation of antibiotic therapy. Patient with negative Doppler study performed on previous ER visit therefore less likely this is a provoked DVT status post hernia repair No evidence of septic joint given full range of motion, absence of erythema and absence of warmth. Discharge home to continue previous prescribed antibiotics and orthopedic evaluation as an outpatient. I discussed the physical exam findings, ancillary test results and final diagnoses with the patient. I answered all of the patient's questions. The patient was satisfied with the care received and felt comfortable with the discharge plan and treatment plan. The patient will call their primary care physician within 24 hours to arrange follow-up and will return to the Emergency Department with any new, persistent or worsening symptoms. Discharge - Discharge Information Problems reviewed: Yes Clinical Impression/Diagnosis: Visit for wound check Condition: Stable Disposition: HOME - Admission No - Follow up/Referral Referrals: Keegan Cross MD [Primary Care Provider] - Lee Nickerson MD [Staff Physician] - - Patient Discharge Instructions Additional Instructions: Continue previously prescribed antibiotics. Continue previously prescribed pain medications. Return to the emergency department for worsening pain, worsening swelling, redness that extends outside the circled area or for any other concerns. You have been given a referral for an orthopedist for continued evaluation of your knee pain. Thank you very much for choosing us to provide your emergent healthcare needs. - Post Discharge Activity
== END 2019-06-18 11:32 | disposition home or self-care (01) ==
LOC: JERFT 10:55
DX: L03.116 Cellulitis of left lower limb (principal); Z51.89 Encounter for other specified aftercare
CPT/HCPCS: 99282-25

== ENCOUNTER 2021-01-06 14:29 | Emergency (ER) | payer OTHER ==
[2021-01-06 14:39] VITALS: BP 163/108; PULSE 113; TEMP 97; BMI 28.6
[2021-01-06] MEDS ORDERED: KETOROLAC TROMETHAMINE 30 MG/1 ML VIAL IM ONE (14:56)
[2021-01-06] MEDS ORDERED: LIDOCAINE 5% TOPICAL PATCH TP ONE (14:57)
[2021-01-06] MEDS ORDERED: LIDOCAINE 5% TOPICAL PATCH ONE (14:58)
[2021-01-06] MEDS ORDERED: DEXAMETHASONE SOD PHOSPHATE 10 MG/1 ML VIAL ONE (14:59)
[2021-01-06] MEDS ORDERED: KETOROLAC TROMETHAMINE 30 MG/1 ML VIAL ONE (14:59)
[2021-01-06] MEDS ORDERED: DEXAMETHASONE 4 MG TABLET (FP) PO ONE (15:00)
[2021-01-06] MEDS ORDERED: LIDOCAINE PATCH REMOVAL MC SCH (22:00)
== END 2021-01-06 15:26 | disposition home or self-care (01) ==
LOC: JERFT 14:29
PROC: 3E0233Z Introduction of Anti-inflammatory into Muscle, Percutaneous Approach (ICD-10-PCS; principal; 2021-01-06)
DX: M10.061 Idiopathic gout, right knee (principal)
CPT/HCPCS: 99284-25

== ENCOUNTER 2021-04-01 19:10 | Emergency (ER) | payer OTHER ==
[2021-04-01 19:18] VITALS: TEMP 98.5; BMI 29.3
[2021-04-01] MEDS ORDERED: KETOROLAC TROMETHAMINE 60 MG/2 ML VIAL IM ONE (20:15)
[2021-04-01] MEDS ORDERED: KETOROLAC TROMETHAMINE 60 MG/2 ML VIAL ONE (20:56)
[2021-04-01 20:59] LABS: BASO % 0.4 % (0-2.0); EOS % 1.8 % (0-4.5); HEMOGLOBIN 13.9 GM/dL (11.7-16.9); LYMPH % 25.6 % (8-40); MCH 30.3 pg (25.7-33.7); MCHC 33.9 g/dl (32.0-35.9); MEAN CELL VOLUME 89.2 fl (80-96); MEAN PLT VOLUME 7.6 fl (7.5-11.1); MONO % 6.3 % (3.8-10.2); NEUT % 65.9 % (42.8-82.8); PLATELET COUNT 239 10^3/uL (134-434); RBC 4.59 M/mm3 (4.00-5.60); RDW 13.7 % (11.9-15.9)
[2021-04-01 21:19] LABS: CALCIUM 9.6 mg/dL (8.5-10.1)
[2021-04-01 21:20] LABS: BLOOD UREA NITROGEN 14.2 mg/dL (7-18)
[2021-04-01 21:24] LABS: BILIRUBIN,TOTAL 0.5 mg/dL (0.2-1); TOT PROT 7.7 g/dl (6.4-8.2)
[2021-04-01 21:25] LABS: URIC ACID 3.8 mg/dL (2.6-7.2)
[2021-04-01 21:43] LABS: ERYTHROCYTE SEDIMENTATION RATE 6 mm/hr (0-10)
[2021-04-01 22:42] VITALS: BP 142/73; PULSE 75
== END 2021-04-01 22:42 | disposition home or self-care (01) ==
LOC: JER 19:10
PROC: 3E0233Z Introduction of Anti-inflammatory into Muscle, Percutaneous Approach (ICD-10-PCS; principal; 2021-04-01)
DX: M79.671 Pain in right foot (principal); M10.9 Gout, unspecified
CPT/HCPCS: 36415; 73610-TC-RT-FY; 73630-TC-RT-FY; 80053; 84550; 85025; 85651; 86140; 99284-25

== ENCOUNTER 2022-07-25 04:19 | Day surgery (SDC) | payer OTHER ==
[2022-07-23 13:05] VITALS: BMI 29.3
[2022-07-25 12:26] VITALS: RESP 18
[2022-07-25] MEDS ORDERED: BUPIVACAINE HCL/PF 0.75% 10 ML VIAL PNB ONE ×2 (13:06)
[2022-07-25] MEDS ORDERED: LIDOCAINE HCL 1% PRESERVATIVE FREE - 30ML VIAL IJ ONE (13:06)
[2022-07-25 13:49] VITALS: BP 147/89; PULSE 64; TEMP 97.7
== END 2022-07-25 13:50 | disposition home or self-care (01) ==
LOC: JASU-SURG 04:19
PROVIDERS: ATTEND Pain Medicine Pain Medicine
PROC: 3E0T33Z Introduction of Anti-inflammatory into Peripheral Nerves and Plexi, Percutaneous Approach (ICD-10-PCS; 2022-07-25)
PROC: 3E0T3BZ Introduction of Anesthetic Agent into Peripheral Nerves and Plexi, Percutaneous Approach (ICD-10-PCS; principal; 2022-07-25 13:00)
DX: M47.816 Spondylosis without myelopathy or radiculopathy, lumbar region (principal)

== ENCOUNTER 2022-08-29 05:41 | Day surgery (SDC) | payer OTHER ==
[2022-08-25 18:40] VITALS: BMI 29.0
[~2022-08-29 05:41] MED LIST: BUPIVACAINE HCL/PF 0.75% 10 ML VIAL NR ONE; LIDOCAINE 1% P/F 10 MG/ML VIAL INF ONE
[2022-08-29] MEDS ORDERED: LIDOCAINE HCL/PF 1% SDV 5ML VIAL ONE (07:32)
[2022-08-29] MEDS ORDERED: BUPIVACAINE HCL/PF 0.75% 10 ML VIAL ONE (07:32)
[2022-08-29] MEDS ORDERED: LIDOCAINE 1% P/F 10 MG/ML VIAL INF ONE ×2 (12:32)
[2022-08-29] MEDS ORDERED: BUPIVACAINE HCL/PF 0.75% 10 ML VIAL NR ONE ×2 (12:33)
[2022-08-29 13:02] VITALS: RESP 16
[2022-08-29 13:22] VITALS: BP 163/99; PULSE 78; TEMP 97.8
== END 2022-08-29 13:25 | disposition home or self-care (01) ==
LOC: JASU-SURG 05:41
PROVIDERS: ATTEND Pain Medicine Pain Medicine
PROC: 3E0T33Z Introduction of Anti-inflammatory into Peripheral Nerves and Plexi, Percutaneous Approach (ICD-10-PCS; 2022-08-29)
PROC: BR16YZZ Fluoroscopy of Lumbar Facet Joint(s) using Other Contrast (ICD-10-PCS; 2022-08-29)
PROC: 3E0T3BZ Introduction of Anesthetic Agent into Peripheral Nerves and Plexi, Percutaneous Approach (ICD-10-PCS; principal; 2022-08-29 13:30)
DX: M47.816 Spondylosis without myelopathy or radiculopathy, lumbar region (principal)
CPT/HCPCS: 76000-TC-FY

== ENCOUNTER 2022-10-03 03:52 | Day surgery (SDC) | payer OTHER ==
[2022-10-01 13:04] VITALS: BMI 29.0
[2022-10-03] MEDS ORDERED: LIDOCAINE HCL/PF 1% SDV 5ML VIAL ONE (07:19)
[2022-10-03] MEDS ORDERED: DEXAMETHASONE SOD PHOSPHATE 10 MG/1 ML VIAL ONE (07:19)
[2022-10-03] MEDS ORDERED: BUPIVACAINE HCL/PF 0.75% 10 ML VIAL ONE (07:19)
[2022-10-03] MEDS ORDERED: LIDOCAINE HCL/PF 2% SDV 5ML VIAL ONE (07:23)
[2022-10-03] MEDS ORDERED: ACETAMINOPHEN 500 MG TABLET (FP) PO PRN (08:50)
[2022-10-03 11:12] VITALS: RESP 18
[2022-10-03] MEDS ORDERED: DEXAMETHASONE SOD PHOSPHATE 10 MG/1 ML VIAL IVPUSH ONE ×2 (11:36→12:39)
[2022-10-03] MEDS ORDERED: MIDAZOLAM HCL 2 MG/2 ML SINGLE DOSE VIAL ONE ×2 (12:14→12:26)
[2022-10-03] MEDS ORDERED: BUPIVACAINE HCL/PF 0.75% 10 ML VIAL PNB ONE (12:23)
[2022-10-03] MEDS ORDERED: LIDOCAINE HCL/PF 2% SDV 5ML VIAL INF ONE (12:23)
[2022-10-03] MEDS ORDERED: LIDOCAINE HCL 1% PRESERVATIVE FREE - 30ML VIAL IJ ONE (12:23)
[2022-10-03 13:16] VITALS: TEMP 97.8
[2022-10-03 14:39] VITALS: BP 135/76; PULSE 82
== END 2022-10-03 13:35 | disposition home or self-care (01) ==
LOC: JASU-SURG 03:52
PROVIDERS: ATTEND Pain Medicine Pain Medicine
PROC: 015B3ZZ Destruction of Lumbar Nerve, Percutaneous Approach (ICD-10-PCS; principal; 2022-10-03 12:30)
DX: M47.816 Spondylosis without myelopathy or radiculopathy, lumbar region (principal)
CPT/HCPCS: 76000-TC-FY; J1100

== ENCOUNTER 2022-11-04 03:42 | Day surgery (SDC) | payer OTHER ==
[2022-10-31 17:24] VITALS: BMI 29.0
[2022-11-04] MEDS ORDERED: BUPIVACAINE HCL/PF 0.75% 10 ML VIAL ONE (07:23)
[2022-11-04] MEDS ORDERED: DEXAMETHASONE SOD PHOSPHATE 10 MG/1 ML VIAL ONE (07:24)
[2022-11-04] MEDS ORDERED: LIDOCAINE HCL/PF 1% SDV 5ML VIAL ONE (07:24)
[2022-11-04 12:29] VITALS: RESP 18
[2022-11-04] MEDS ORDERED: ACETAMINOPHEN 500 MG TABLET (FP) PO PRN (12:46)
[2022-11-04] MEDS ORDERED: MIDAZOLAM HCL 2 MG/2 ML SINGLE DOSE VIAL ONE (13:38)
[2022-11-04] MEDS ORDERED: LIDOCAINE HCL 1% PRESERVATIVE FREE - 30ML VIAL IJ ONE (13:42)
[2022-11-04] MEDS ORDERED: DEXAMETHASONE SOD PHOSPHATE 10 MG/1 ML VIAL IVPUSH ONE (13:43)
[2022-11-04] MEDS ORDERED: LIDOCAINE HCL/PF 2% SDV 5ML VIAL INF ONE (13:43)
[2022-11-04 15:30] VITALS: BP 160/89; PULSE 64; TEMP 97.9
== END 2022-11-04 15:00 | disposition home or self-care (01) ==
LOC: JASU-SURG 03:42
PROVIDERS: ATTEND Pain Medicine Pain Medicine
PROC: 015B3ZZ Destruction of Lumbar Nerve, Percutaneous Approach (ICD-10-PCS; principal; 2022-11-04 14:15)
DX: M47.816 Spondylosis without myelopathy or radiculopathy, lumbar region (principal)
CPT/HCPCS: 76000-TC-FY; J1100

== ENCOUNTER 2023-04-14 04:47 | Day surgery (SDC) | payer OTHER ==
[2023-04-10 16:21] VITALS: BMI 29.0
[2023-04-14] MEDS ORDERED: BUPIVACAINE HCL/PF 0.5% (5MG/ML) 10 ML VIAL ONE (07:40)
[2023-04-14] MEDS ORDERED: BUPIVACAINE HCL/PF 0.5% (5 MG/ML) 30 ML VIAL IJ ONE ×2 (11:43→11:48)
[2023-04-14 12:17] VITALS: RESP 18
[2023-04-14] MEDS ORDERED: ACETAMINOPHEN 500 MG TABLET (FP) PO PRN (12:23)
[2023-04-14 13:10] VITALS: BP 130/84; PULSE 88; TEMP 97.5
== END 2023-04-14 12:55 | disposition home or self-care (01) ==
LOC: JASU-SURG 04:47
PROVIDERS: ATTEND Pain Medicine Pain Medicine
PROC: 3E0T33Z Introduction of Anti-inflammatory into Peripheral Nerves and Plexi, Percutaneous Approach (ICD-10-PCS; 2023-04-14)
PROC: 3E0T3BZ Introduction of Anesthetic Agent into Peripheral Nerves and Plexi, Percutaneous Approach (ICD-10-PCS; principal; 2023-04-14 12:45)
DX: M47.812 Spondylosis without myelopathy or radiculopathy, cervical region (principal)
CPT/HCPCS: 76000-TC-FY

== ENCOUNTER 2023-05-19 04:33 | Day surgery (SDC) | payer OTHER ==
[2023-05-15 17:23] VITALS: BMI 29.0
[2023-05-19] MEDS ORDERED: BUPIVACAINE HCL/PF 0.5% (5MG/ML) 10 ML VIAL ONE (07:17)
[2023-05-19] MEDS ORDERED: LIDOCAINE HCL/PF 1% SDV 5ML VIAL ONE (07:17)
[2023-05-19] MEDS ORDERED: ACETAMINOPHEN 500 MG TABLET (FP) PO PRN (12:14)
[2023-05-19] MEDS ORDERED: LIDOCAINE HCL/PF 2% SDV 5ML VIAL ONE (12:46)
[2023-05-19] MEDS ORDERED: PROPOFOL 40 ML ONE (12:47)
[2023-05-19] MEDS ORDERED: MIDAZOLAM HCL 2 MG/2 ML SINGLE DOSE VIAL ONE (12:47)
[2023-05-19] MEDS ORDERED: BUPIVACAINE HCL/PF 0.5% (5MG/ML) 10 ML VIAL IJ ONE (13:04)
[2023-05-19 13:22] VITALS: RESP 20; TEMP 97.3
[2023-05-19 14:19] VITALS: BP 120/78; PULSE 80
== END 2023-05-19 13:52 | disposition home or self-care (01) ==
LOC: JASU-SURG 04:33
PROVIDERS: ATTEND Pain Medicine Pain Medicine
PROC: 3E0T33Z Introduction of Anti-inflammatory into Peripheral Nerves and Plexi, Percutaneous Approach (ICD-10-PCS; 2023-05-19)
PROC: BR14ZZZ Fluoroscopy of Cervical Facet Joint(s) (ICD-10-PCS; 2023-05-19)
PROC: 3E0T3BZ Introduction of Anesthetic Agent into Peripheral Nerves and Plexi, Percutaneous Approach (ICD-10-PCS; principal; 2023-05-19 13:15)
DX: M47.812 Spondylosis without myelopathy or radiculopathy, cervical region (principal)
CPT/HCPCS: 76000-TC-FY

== ENCOUNTER 2023-07-07 04:05 | Day surgery (SDC) | payer OTHER ==
[2023-07-03 10:47] VITALS: BMI 28.2
[2023-07-07] MEDS ORDERED: BUPIVACAINE HCL/PF 0.5% (5MG/ML) 10 ML VIAL ONE (07:35)
[2023-07-07] MEDS ORDERED: LIDOCAINE HCL/PF 2% SDV 5ML VIAL ONE ×2 (07:35→13:07)
[2023-07-07] MEDS ORDERED: DEXAMETHASONE SOD PHOSPHATE 10 MG/1 ML VIAL ONE (07:35)
[2023-07-07] MEDS ORDERED: LIDOCAINE HCL/PF 1% SDV 5ML VIAL ONE ×2 (07:35→13:08)
[2023-07-07] MEDS ORDERED: ACETAMINOPHEN 500 MG TABLET (FP) PO PRN (10:50)
[2023-07-07] MEDS ORDERED: DEXMEDETOMIDINE HCL 200 MCG/2 ML IVPB ONE (13:58)
[2023-07-07] MEDS ORDERED: MIDAZOLAM HCL 2 MG/2 ML SINGLE DOSE VIAL ONE (14:13)
[2023-07-07] MEDS: LIDOCAINE 1% P/F 10 MG/ML VIAL INF ONE (14:21)
[2023-07-07] MEDS: IOHEXOL 180 MG/1 ML ML IJ ONE (14:22)
[2023-07-07] MEDS: BUPIVACAINE HCL/PF 0.5% (5MG/ML) 10 ML VIAL IJ ONE (14:25)
[2023-07-07] MEDS: DEXAMETHASONE SOD PHOSPHATE 10 MG/1 ML VIAL IVPUSH ONE ×2 (14:27→14:34)
[2023-07-07 15:00] VITALS: BP 145/93; PULSE 69; RESP 16; TEMP 98.7
== END 2023-07-07 15:15 | disposition home or self-care (01) ==
LOC: JASU-SURG 04:05
PROVIDERS: ATTEND Pain Medicine Pain Medicine
PROC: 015B3ZZ Destruction of Lumbar Nerve, Percutaneous Approach (ICD-10-PCS; principal; 2023-07-07 14:00)
DX: M47.812 Spondylosis without myelopathy or radiculopathy, cervical region (principal)
CPT/HCPCS: 76000-TC-FY; J1100

== ENCOUNTER 2023-08-04 04:26 | Day surgery (SDC) | payer OTHER ==
[2023-07-29 16:15] VITALS: BMI 29.0
[2023-08-04] MEDS ORDERED: BUPIVACAINE HCL/PF 0.5% (5MG/ML) 10 ML VIAL ONE (07:46)
[2023-08-04] MEDS ORDERED: LIDOCAINE HCL/PF 2% SDV 5ML VIAL ONE (07:46)
[2023-08-04] MEDS ORDERED: DEXAMETHASONE SOD PHOSPHATE 10 MG/1 ML VIAL ONE (07:46)
[2023-08-04] MEDS ORDERED: LIDOCAINE HCL/PF 1% SDV 5ML VIAL ONE (07:46)
[2023-08-04] MEDS ORDERED: ACETAMINOPHEN 500 MG TABLET (FP) PO PRN (09:35)
[2023-08-04 09:48] VITALS: RESP 18
[2023-08-04] MEDS ORDERED: MIDAZOLAM HCL 2 MG/2 ML SINGLE DOSE VIAL ONE (12:27)
[2023-08-04] MEDS: LIDOCAINE HCL 1% PRESERVATIVE FREE - 30ML VIAL IJ ONE (12:36)
[2023-08-04] MEDS: LIDOCAINE HCL/PF 2% SDV 5ML VIAL INF ONE ×2 (12:48)
[2023-08-04] MEDS: DEXAMETHASONE SOD PHOSPHATE 10 MG/1 ML VIAL IM ONE ×2 (12:54)
[2023-08-04] MEDS: BUPIVACAINE HCL/PF 0.5% (5MG/ML) 10 ML VIAL IJ ONE ×2 (12:54)
[2023-08-04 13:52] VITALS: BP 144/88; PULSE 80; TEMP 97.9
== END 2023-08-04 13:50 | disposition home or self-care (01) ==
LOC: JASU-SURG 04:26
PROVIDERS: ATTEND Pain Medicine Pain Medicine
PROC: 01513ZZ Destruction of Cervical Nerve, Percutaneous Approach (ICD-10-PCS; principal; 2023-08-04 11:30)
DX: M47.812 Spondylosis without myelopathy or radiculopathy, cervical region (principal)
CPT/HCPCS: 76000-TC-FY; J1100

== ENCOUNTER 2023-09-29 04:38 | Day surgery (SDC) | payer OTHER ==
[2023-09-28 16:00] VITALS: BMI 29.0
[2023-09-29 09:07] VITALS: BP 143/84; PULSE 74; RESP 20; TEMP 97.4
[2023-09-29] MEDS ORDERED: DEXAMETHASONE SOD PHOSPHATE 10 MG/1 ML VIAL ONE (11:01)
[2023-09-29] MEDS ORDERED: LIDOCAINE HCL/PF 1% SDV 5ML VIAL ONE (11:01)
[2023-09-29] MEDS ORDERED: ACETAMINOPHEN 500 MG TABLET (FP) PO PRN (15:57)
== END 2023-09-29 11:38 | disposition home or self-care (01) ==
LOC: JASU-SURG 04:38
PROVIDERS: ATTEND Pain Medicine Pain Medicine
DX: Z53.8 Procedure and treatment not carried out for other reasons (principal)
CPT/HCPCS: J1100

== ENCOUNTER 2023-10-13 04:26 | Day surgery (SDC) | payer OTHER ==
[2023-10-08 15:55] VITALS: BMI 29.0
[2023-10-13] MEDS ORDERED: LIDOCAINE HCL/PF 1% SDV 5ML VIAL ONE (07:43)
[2023-10-13] MEDS ORDERED: DEXAMETHASONE SOD PHOSPHATE 10 MG/1 ML VIAL ONE (07:44)
[2023-10-13] MEDS ORDERED: ACETAMINOPHEN 500 MG TABLET (FP) PO PRN (10:33)
[2023-10-13] MEDS ORDERED: MIDAZOLAM HCL 2 MG/2 ML SINGLE DOSE VIAL ONE (12:56)
[2023-10-13] MEDS ORDERED: FENTANYL CITRATE/PF 50 MCG/ML VIAL ONE ×2 (12:56→12:57)
[2023-10-13] MEDS: IOHEXOL 180 MG/1 ML ML IJ ONE (13:30)
[2023-10-13] MEDS: DEXAMETHASONE SOD PHOSPHATE 10 MG/1 ML VIAL IVPUSH ONE (13:31)
[2023-10-13] MEDS: LIDOCAINE HCL 1% PRESERVATIVE FREE - 30ML VIAL IJ ONE (13:31)
[2023-10-13 14:10] VITALS: RESP 18; TEMP 98
[2023-10-13 14:26] VITALS: BP 121/88; PULSE 71
== END 2023-10-13 14:20 | disposition home or self-care (01) ==
LOC: JASU-SURG 04:26
PROVIDERS: ATTEND Pain Medicine Pain Medicine
PROC: 3E0R3BZ Introduction of Anesthetic Agent into Spinal Canal, Percutaneous Approach (ICD-10-PCS; 2023-10-13)
PROC: 3E0R33Z Introduction of Anti-inflammatory into Spinal Canal, Percutaneous Approach (ICD-10-PCS; principal; 2023-10-13 12:00)
DX: M54.12 Radiculopathy, cervical region (principal)
CPT/HCPCS: 76000-TC-FY; J1100

== ENCOUNTER 2024-06-03 04:07 | Day surgery (SDC) | payer OTHER ==
[2024-05-30 09:08] VITALS: BMI 29.0
[2024-06-03] MEDS ORDERED: ACETAMINOPHEN 500 MG TABLET (FP) PO PRN (08:39)
[2024-06-03 13:30] VITALS: RESP 16
[2024-06-03 14:20] VITALS: BP 151/90; PULSE 74; TEMP 97.8
== END 2024-06-03 14:47 | disposition home or self-care (01) ==
LOC: JASU-SURG 04:07
PROVIDERS: ATTEND Pain Medicine Pain Medicine
PROC: 3E0R3BZ Introduction of Anesthetic Agent into Spinal Canal, Percutaneous Approach (ICD-10-PCS; 2024-06-03)
PROC: 3E0R33Z Introduction of Anti-inflammatory into Spinal Canal, Percutaneous Approach (ICD-10-PCS; principal; 2024-06-03 14:30)
DX: M48.061 Spinal stenosis, lumbar region without neurogenic claudication (principal); M54.16 Radiculopathy, lumbar region
CPT/HCPCS: 76000-TC-FY

== ENCOUNTER 2024-07-28 07:01 | Day surgery (SDC) | payer OTHER ==
[2024-07-25 12:00] VITALS: BMI 28.1
[2024-07-28] MEDS ORDERED: ACETAMINOPHEN 500 MG TABLET (FP) PO PRN (08:35)
[2024-07-28] MEDS: LIDOCAINE HCL 1% PRESERVATIVE FREE - 30ML VIAL EP ONE (13:56)
[2024-07-28] MEDS: IOHEXOL 180 MG/1 ML ML IT ONE (13:58)
[2024-07-28] MEDS: DEXAMETHASONE SOD PHOSPHATE 10 MG/1 ML VIAL IM ONE (13:59)
[2024-07-28 15:57] VITALS: BP 160/98; PULSE 72; RESP 18; TEMP 97.4
== END 2024-07-28 14:43 | disposition home or self-care (01) ==
LOC: JASU-SURG 07:01
PROVIDERS: ATTEND Pain Medicine Pain Medicine
PROC: 3E0R33Z Introduction of Anti-inflammatory into Spinal Canal, Percutaneous Approach (ICD-10-PCS; principal; 2024-07-28 13:45)
DX: M54.12 Radiculopathy, cervical region (principal)
CPT/HCPCS: 76000-TC-FY; J1100